=== PATIENT | male | born 2000 | race Caucasian/White ===

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

== ENCOUNTER 2022-05-11 13:56 | Emergency (ER) | payer BC, OTHER ==
[~2022-05-11] VITALS: Ht 180.3 cm; Wt 180.0 kg
--- NOTE | 2022-05-11 14:22 | ED Chest Pain ---
General Chief Complaint: Chest Pain Stated Complaint: CHEST PAINS Nursing Triage Note: PT AMB TO ED BY POV WITH C/O CP SINCE SAT. PT REPORTS HE TESTED POSITIVE FOR COVID 3 WEEKS AGO AND IS STILL HAVING FATIGUE AND WEKANESS. CP INTERMITTENT SINCE SAT. Source: patient Exam Limitations: no limitations (ANNIE FALCON APRN) History of Present Illness Date Seen by Provider: May 11, 2022 Time Seen by Provider: 14:15 Initial Comments Patient is a 22-year-old male who presents to the emergency department with several days of chest pain. States the pain somewhat worsened earlier today. This prompted presentation to the emergency department for further evaluation. Patient did have COVID approximately 3 weeks ago and since that time has had a persistent mild cough as well as some exertional fatigue/shortness of air. Denies any history of cardiopulmonary disease. Does not smoke. Denies any diaphoresis or lower extremity edema. (ANNIE FALCON APRN) Allergies and Home Medications Allergies Coded Allergies: No Known Drug Allergies (Unverified , 05/11/22) Patient Home Medication List Home Medication List Reviewed: Yes (ANNIE FALCON APRN) Review of Systems Review of Systems Constitutional: no symptoms reported EENTM: No Symptoms Reported Respiratory: See HPI Cardiovascular: See HPI Gastrointestinal: No Symptoms Reported Genitourinary: No Symptoms Reported Musculoskeletal: no symptoms reported (ANNIE FALCON APRN) Past Nminagc-Qlisys-Zlixkc Hx Patient Social History Tobacco Use?: No Use of E-Cig and/or Vaping dev: No Substance use?: No Alcohol Use?: No Pt feels they are or have been: No (ANNIE FALCON APRN) Immunizations Up To Date Influenza Vaccine Up-to-Date: No; Not Current First/Initial COVID19 Vaccinat: 2020 Second COVID19 Vaccination Melvin: 2020 Third COVID19 Vaccination Date: 2021 (ANNIE FALCON APRN) Past Medical History Surgery/Hospitalization HX: HTN, DEPRESSION (ANNIE FALCON APRN) Physical Exam Vital Signs Vital Signs - First Documented 05/11/22 14:03 Temp 37.5 Pulse 107 Resp 22 B/P (MAP) 191/116 (141) Pulse Ox 97 O2 Delivery Room Air (AGUSTÍN ESCOTO MD) Vital Signs Capillary Refill : Less Than 3 Seconds (ANNIE FALCON APRN) Height, Weight, BMI Height: '" Weight: lbs. oz. kg; 55.00 BMI Method: General Appearance: No Apparent Distress, WD/WN HEENT: PERRL/EOMI, TMs Normal, Normal ENT Inspection, Pharynx Normal Neck: Full Range of Motion, Normal Inspection, Non Tender, Supple Respiratory: Chest Non Tender, Lungs Clear, Normal Breath Sounds, No Accessory Muscle Use, No Respiratory Distress Cardiovascular: Regular Rate, Rhythm Gastrointestinal: Normal Bowel Sounds, Non Tender, Soft Neurologic/Psychiatric: Alert, Oriented x3, No Motor/Sensory Deficits, Normal Mood/Affect, supervisor of way II-XII Norm as Tested Skin: Normal Color, Warm/Dry (ANNIE FALCON APRN) Progress/Results/Core Measures Results/Orders Lab Results Laboratory Tests Test 05/11/22 14:15 Range/Units White Blood Count 10.7 4.3-11.0 10^3/uL Red Blood Count 5.24 4.30-5.52 10^6/uL Hemoglobin 14.2 13.3-17.7 g/dL Hematocrit 43 40-54 % Mean Corpuscular Volume 83 80-99 fL Mean Corpuscular Hemoglobin 27 25-34 pg Mean Corpuscular Hemoglobin Concent 33 32-36 g/dL Red Cell Distribution Width 13.0 10.0-14.5 % Platelet Count 427 H 130-400 10^3/uL Mean Platelet Volume 9.7 9.0-12.2 fL Immature Granulocyte % (Auto) 1 % Neutrophils (%) (Auto) 70 42-75 % Lymphocytes (%) (Auto) 21 12-44 % Monocytes (%) (Auto) 6 0-12 % Eosinophils (%) (Auto) 2 0-10 % Basophils (%) (Auto) 1 0-10 % Neutrophils # (Auto) 7.5 1.8-7.8 10^3/uL Lymphocytes # (Auto) 2.3 1.0-4.0 10^3/uL Monocytes # (Auto) 0.6 0.0-1.0 10^3/uL Eosinophils # (Auto) 0.2 0.0-0.3 10^3/uL Basophils # (Auto) 0.1 0.0-0.1 10^3/uL Immature Granulocyte # (Auto) 0.1 0.0-0.1 10^3/uL Prothrombin Time 13.1 12.2-14.7 SEC INR Comment 1.0 0.8-1.4 Activated Partial Thromboplast Time 30 24-35 SEC D-Dimer 0.28 0.00-0.49 UG/ML Sodium Level 137 135-145 MMOL/L Potassium Level 4.1 3.6-5.0 MMOL/L Chloride Level 102 98-107 MMOL/L Carbon Dioxide Level 25 21-32 MMOL/L Anion Gap 10 5-14 MMOL/L Blood Urea Nitrogen 8 7-18 MG/DL Creatinine 0.79 0.60-1.30 MG/DL Estimat Glomerular Filtration Rate 127 BUN/Creatinine Ratio 10 Glucose Level 162 H 70-105 MG/DL Calcium Level 9.8 8.5-10.1 MG/DL Corrected Calcium 9.7 8.5-10.1 MG/DL Magnesium Level 1.9 1.6-2.4 MG/DL Total Bilirubin 0.5 0.1-1.0 MG/DL Aspartate Amino Transf (AST/SGOT) 18 5-34 U/L Alanine Aminotransferase (ALT/SGPT) 22 0-55 U/L Alkaline Phosphatase 83 40-136 U/L Myoglobin 25.4 10.0-92.0 NG/ML Troponin I < 0.028 <0.028 NG/ML Total Protein 7.9 6.4-8.2 GM/DL Albumin 4.1 3.2-4.5 GM/DL (AGUSTÍN ESCOTO MD) My Orders Orders - AGUSTÍN ESCOTO MD Ekg Tracing (05/11/22 14:00) (AGUSTÍN ESCOTO MD) Vital Signs/I&O 05/11/22 05/11/22 14:03 15:25 Temp 37.5 37.0 Pulse 107 96 Resp 22 22 B/P (MAP) 191/116 (141) 169/101 Pulse Ox 97 97 O2 Delivery Room Air Room Air (AGUSTÍN ESCOTO MD) Blood Pressure Mean: 141 Progress Progress Note : Progress Note Patient is nontoxic and well-hydrated on exam. No adventitious lung sounds or increased work of breathing noted. Vital signs reassuring although there is very mild tachycardia with a heart rate between 100-105 noted on the monitor. Patient states the chest pain is substernal in location and rates it a 1 out of 10 at rest. Laboratory evaluation unremarkable. Troponin negative. D-dimer negative. Chest x-ray is acutely negative. EKG without acute ischemic change or arrhythmia. No indication for further diagnostic testing at this time. Discussed supportive care and anticipatory guidance. Discussed importance of close follow-up with PCP. Return precautions for urgent symptomology discussed. Patient verbalized understanding. (ANNIE FALCON APRN) EKG : EKG Time: 14:07 Rate: 104 Rhythm: S.Tach Intervals: Normal ECG Impression: Normal (ANNIE FALCON APRN) Departure Impression Primary Impression: Chest pain Qualified Codes: R07.9 - Chest pain, unspecified Disposition: HOME, SELF-CARE Condition: Stable Admissions Decision to Admit Reason: Admit from ER (General) (ANNIE FALCON APRN) Departure-Patient Inst. Decision time for Depature: 15:10 (ANNIE FALCON APRN) Referrals: [facility] (PCP/Family) Primary Care Physician Patient Instructions: Chest Pain That Is Not Caused by the Heart (DC) ATTENDING PHYSICIAN NOTE: I was physically present as attending physician in the emergency department during the care of this patient, but I was not directly involved in the decision making or delivery of care for this patient. (AGUSTÍN ESCOTO MD) ANNIE FALCON APRN May 11, 2022 14:22 AGUSTÍN ESCOTO MD May 11, 2022 18:58
[2022-05-11 14:29] LABS: BASOPHILS # (AUTO) 0.1 10^3/uL (0.0-0.1); BASOPHILS % (AUTO) 1 % (0-10); EOSINOPHILS # (AUTO) 0.2 10^3/uL (0.0-0.3); EOSINOPHILS % (AUTO) 2 % (0-10); HEMATOCRIT 43 % (40-54); HEMOGLOBIN 14.2 g/dL (13.3-17.7); LYMPHOCYTES # (AUTO) 2.3 10^3/uL (1.0-4.0); LYMPHOCYTES % (AUTO) 21 % (12-44); MEAN CORPUSCULAR HEMOGLOBIN 27 pg (25-34); MEAN CORPUSCULAR HGB CONC 33 g/dL (32-36); MEAN CORPUSCULAR VOLUME 83 fL (80-99); MEAN PLATELET VOLUME 9.7 fL (9.0-12.2); MONOCYTES # (AUTO) 0.6 10^3/uL (0.0-1.0); MONOCYTES % (AUTO) 6 % (0-12); NEUTROPHILS # (AUTO) 7.5 10^3/uL (1.8-7.8); NEUTROPHILS % (AUTO) 70 % (42-75); PLATELET COUNT 427 10^3/uL (130-400); WHITE BLOOD COUNT 10.7 10^3/uL (4.3-11.0)
[2022-05-11 14:40] LABS: ALBUMIN 4.1 GM/DL (3.2-4.5); POTASSIUM 4.1 MMOL/L (3.6-5.0)
[2022-05-11 14:41] LABS: CALCIUM 9.8 MG/DL (8.5-10.1)
[2022-05-11 14:43] LABS: PROTHROMBIN TIME PATIENT 13.1 SEC (12.2-14.7); TOTAL PROTEIN 7.9 GM/DL (6.4-8.2)
[2022-05-11 14:44] LABS: BILIRUBIN,TOTAL 0.5 MG/DL (0.1-1.0)
[2022-05-11 14:46] LABS: CREATININE SERUM 0.79 MG/DL (0.60-1.30)
[2022-05-11 14:49] LABS: MAGNESIUM 1.9 MG/DL (1.6-2.4)
--- NOTE | 2022-05-11 14:51 | Diagnostic Imaging Report ---
INDICATION: Chest pain. EXAMINATION: Portable chest at 02:28 p.m. FINDINGS: Heart size and pulmonary vascularity are normal. Lungs are clear. There are no effusions or pneumothoraces. IMPRESSION: No acute abnormalities in the chest. Dictated by: Dictated on workstation # [id number]
[2022-05-11 15:25] VITALS: BP 169/101
== END 2022-05-11 15:25 | disposition home or self-care (01) ==
LOC: EDUNIT# 13:56 → ER 13:59
DX: R07.2 Precordial pain (principal); R00.0 Tachycardia, unspecified
CPT/HCPCS: 36415; 71045; 80053; 83735; 83874; 84484; 85025; 85379; 85610; 85730; 93005; 93041